=== PATIENT | male | born 1930 | race African-American/Black ===

== ENCOUNTER 2018-08-10 22:08 | Inpatient (IN) | payer MEDICARE, OTHER ==
[~2018-08-10] VITALS: Ht 175.3 cm; Wt 86.2 kg
[2018-08-11] MEDS ORDERED: NITROGLYCERIN OINT 1GM/INCH UDPKT TD ONE
[2018-08-11] MEDS ORDERED: ASPIRIN 81MG TABLET PO ONE
[2018-08-11 00:33] LABS: BASOPHILS % 0.9 % (0.0-2.0); EOSINOPHILS % 2.1 % (0.0-5.0); HEMATOCRIT. 39.3 % (42.0-52.0); HEMOGLOBIN. 12.9 g/dL (14.0-18.0); LYMPHOCYTES % 37.2 % (20.0-50.0); MEAN CORPUSCULAR HEMOGLOBIN 30.2 pg (28.0-32.0); MEAN CORPUSCULAR VOLUME 92.3 fL (80.0-94.0); MEAN PLATELET VOLUME 8.2 fl (7.4-10.4); MONOCYTES % 14.4 % (2.0-8.0); NEUTROPHILS % 45.4 % (40.0-76.0); PLATELET 207 x1000/uL (130-400); RED BLOOD CELL COUNT 4.26 mill/uL (4.7-6.1); RED CELL DISTRIBUTION WIDTH 14.3 % (11.6-14.6)
[2018-08-11 00:41] LABS: CHLORIDE 105 mEq/L (98-107)
[2018-08-11 00:50] LABS: INR 1.4; PARTIAL THROMBOPLASTIN TIME 35.2 sec (23.4-31.0); PROTHROMBIN TIME 13.6 sec (9.1-11.1)
[2018-08-11 05:11] VITALS: BP 153/68
[2018-08-11] MEDS ORDERED: FURO20TA4 PO (05:32)
[2018-08-11] MEDS ORDERED: POTA99TA4 PO (05:32)
[2018-08-11] MEDS ORDERED: ATOR40TA70 PO (05:32)
[2018-08-11] MEDS ORDERED: FERR325T6 PO (05:32)
[2018-08-11] MEDS ORDERED: RIVA20TA PO (05:32)
[2018-08-11] MEDS ORDERED: AMLO5TAB88 PO (05:32)
[2018-08-11] MEDS ORDERED: METF-414 PO (05:32)
[2018-08-11] MEDS ORDERED: AMIO100T4 PO (05:32)
[2018-08-11 08:00] VITALS: BP 90/41
[2018-08-11] MEDS ORDERED: ONDANSETRON HCL 4MG/2ML INJ IV PRN (08:30)
[2018-08-11] MEDS ORDERED: GUAIFENESIN 200MG/10ML SUGAR FREE UDC PO PRN (08:30)
[2018-08-11] MEDS ORDERED: DOCUSATE SODIUM 100MG CAPSULE PO PRN (08:30)
[2018-08-11] MEDS ORDERED: DIPHENHYDRAMINE 50MG/ML VIAL IV PRN (08:30)
[2018-08-11] MEDS ORDERED: IPRATROPIUM/ALBUTEROL 0.5-3(2.5)MG/3ML NEB INH PRN (08:30)
[2018-08-11] MEDS ORDERED: HYDROCODONE/ACETAMINOPHEN 5/325MG TABLET PO PRN (08:30)
[2018-08-11] MEDS ORDERED: ACETAMINOPHEN 325MG TABLET PO PRN (08:30)
[2018-08-11] MEDS ORDERED: DEXTROSE 50% WATER 50ML SYRINGE IV PRN (11:30)
[2018-08-11 12:00] VITALS: BP 108/63
[2018-08-11 12:08] LABS: PHOSPHORUS 3.6 mg/dL (2.5-4.9)
[2018-08-11] MEDS: BLOOD SUGAR DIAGNOSTIC STRIP TEST SCH ×3 (12:21→21:24)
[2018-08-11] MEDS: INSULIN LISPRO 100 UNITS/ML SUBCUT SCH ×3 (12:33→21:00)
[2018-08-11 16:00] VITALS: BP 130/62
[2018-08-11] MEDS: FUROSEMIDE 20MG TABLET PO SCH (16:44)
[2018-08-11] MEDS: FERROUS SULFATE 325MG TABLET PO SCH (16:44)
[2018-08-11] MEDS: LISINOPRIL 5MG TABLET PO SCH (16:44)
[2018-08-11] MEDS ORDERED: RIVAROXABAN 20 MG TABLET PO SCH (17:00)
[2018-08-11 20:00] VITALS: BP 132/59
[2018-08-11] MEDS ORDERED: ATORVASTATIN CALCIUM 40MG TABLET PO SCH (21:00)
[2018-08-11] MEDS ORDERED: AMIODARONE HCL 200 MG TABLET PO SCH (21:00)
[2018-08-11] MEDS ORDERED: AMLODIPINE 5MG TABLET PO SCH (21:00)
[2018-08-11] MEDS: METOPROLOL TARTRATE 25MG TABLET PO SCH (21:29)
[2018-08-11] MEDS: NITROGLYCERIN OINT 1GM/INCH UDPKT TD SCH (21:57)
[2018-08-12] VITALS: BP 143/57
[2018-08-12 04:00] VITALS: BP 118/55
[2018-08-12] MEDS: NITROGLYCERIN OINT 1GM/INCH UDPKT TD SCH (06:21)
[2018-08-12] MEDS: INSULIN LISPRO 100 UNITS/ML SUBCUT SCH (06:22)
[2018-08-12] MEDS: BLOOD SUGAR DIAGNOSTIC STRIP TEST SCH (06:22)
[2018-08-12 06:25] LABS: CHLORIDE 104 mEq/L (98-107)
[2018-08-12 06:33] LABS: HDL CHOLESTEROL 52 mg/dL (40-59); LDL CHOLESTEROL 71 mg/dL (5-100)
[2018-08-12 06:56] LABS: BASOPHILS % 0.7 % (0.0-2.0); EOSINOPHILS % 2.2 % (0.0-5.0); HEMATOCRIT. 37.2 % (42.0-52.0); HEMOGLOBIN. 12.2 g/dL (14.0-18.0); LYMPHOCYTES % 36.7 % (20.0-50.0); MEAN CORPUSCULAR HEMOGLOBIN 30.4 pg (28.0-32.0); MEAN CORPUSCULAR VOLUME 92.4 fL (80.0-94.0); MEAN PLATELET VOLUME 8.8 fl (7.4-10.4); NEUTROPHILS % 47.4 % (40.0-76.0); PLATELET 202 x1000/uL (130-400); RED BLOOD CELL COUNT 4.02 mill/uL (4.7-6.1); RED CELL DISTRIBUTION WIDTH 13.9 % (11.6-14.6)
[2018-08-12 08:00] VITALS: BP 127/48
[2018-08-12] MEDS ORDERED: POTASSIUM CHLORIDE 20MEQ TABLET SR PO SCH (09:00)
[2018-08-12] MEDS: METOPROLOL TARTRATE 25MG TABLET PO SCH (09:24)
[2018-08-12] MEDS: LISINOPRIL 5MG TABLET PO SCH (09:24)
[2018-08-12] MEDS: FUROSEMIDE 20MG TABLET PO SCH (09:25)
[2018-08-12] MEDS: FERROUS SULFATE 325MG TABLET PO SCH (09:25)
[2018-08-12] MEDS ORDERED: ISOSORBIDE MONONITRATE 60MG TABLET SR 24HR PO SCH (11:45)
[2018-08-12 13:34] VITALS: BP 99/50
== END 2018-08-12 15:30 | disposition home or self-care (01) | DRG 206 ==
LOC: ER 22:08 → 5WST 08-11 01:48 → ENRESERV 08-11 03:19
PROVIDERS: ADMIT Internal Medicine; ATTEND Internal Medicine
DX: M94.0 Chondrocostal junction syndrome [Tietze] (principal); D64.9 Anemia, unspecified; E11.65 Type 2 diabetes mellitus with hyperglycemia; E66.9 Obesity, unspecified; E78.00 Pure hypercholesterolemia, unspecified; E78.5 Hyperlipidemia, unspecified; I11.9 Hypertensive heart disease without heart failure; I48.91 Unspecified atrial fibrillation; Z90.79 Acquired absence of other genital organ(s); Z79.01 Long term (current) use of anticoagulants; Z79.84 Long term (current) use of oral hypoglycemic drugs; Z79.899 Other long term (current) drug therapy; Z85.46 Personal history of malignant neoplasm of prostate; Z87.891 Personal history of nicotine dependence; Z82.49 Family history of ischemic heart disease and other diseases of the circulatory system; Z68.28 Body mass index [BMI] 28.0-28.9, adult
CPT/HCPCS: 36415; 71045; 80061; 82962; 83036; 83735; 83880; 84100; 84443; 84484; 93005; 93306; 93970; 96374; 96375; 97162; 97165; 99285; J1815